=== PATIENT | female | born 1965 | race Caucasian/White ===

== ENCOUNTER 2017-07-24 17:44 | Emergency (ER) | payer MEDICARE ==
[2017-07-24] MEDS ORDERED: KETOROLAC 30 MG/ML 1 ML VIAL IVP STA (18:15)
[2017-07-24] MEDS ORDERED: diphenhydrAMINE 50 MG/ML 1 ML VIAL IVP STA (18:15)
[2017-07-24] MEDS ORDERED: SODIUM CHLORIDE 0.9% 1,000 ML IV STA (18:15)
[2017-07-24] MEDS ORDERED: METOCLOPRAMIDE 5 MG/ML 2 ML VIAL IVP STA (18:15)
--- NOTE | 2017-07-24 18:41 | ED ---
General Adult HPI - General Chief complaint: Headache Stated complaint: Migraine Time Seen by Provider: 07/24/17 18:01 Source: patient, RN notes reviewed Mode of arrival: ambulatory Limitations: no limitations - History of Present Illness Initial comments: 51-year-old female with a past medical history of chronic migraines presents for chronic migraine. She states that she's had this migraine nausea vomiting. She has sensitivity to light and sound. Patient states this happens every once a while of flareup in her at home that was will not take the headache away. Patient denies any fever chills any cough cold runny nose associated with she is not currently having any other symptoms. Patient denies any recent fever, chills, shortness of breath, chest pain, back pain, abdominal pain, nausea vomiting, numbness or tingling, dysuria or hematuria, constipation or diarrhea, visual changes, or any other current symptoms. - Related Data Home Medications Medication Instructions Recorded Confirmed Amitriptyline HCl [Elavil] 50 mg PO HS 10/30/14 06/16/16 Hydrocodone/Acetaminophen [[place] 1 tab PO TID PRN 12/09/15 06/16/16 10-325] Gabapentin [Neurontin] 100 mg PO TID 03/22/16 06/16/16 DULoxetine HCL [Cymbalta] 60 mg PO QAM 04/18/16 06/16/16 LORazepam [Ativan] 1 mg PO DAILY PRN 05/14/16 06/16/16 Previous Rx's Medication Instructions Recorded Pramipexole [Mirapex] 1 mg PO HS #30 tab 04/03/16 QUEtiapine [SEROquel] 200 mg PO HS #30 tab 04/03/16 Allergies Allergy/AdvReac Type Severity Reaction Status Date / Time iodine Allergy Rash/Hives Verified 07/24/17 17:56 shellfish derived [Shellfish] Allergy Rash/Hives Verified 07/24/17 17:56 Review of Systems ROS Statement: Those systems with pertinent positive or pertinent negative responses have been documented in the HPI. ROS Other: All systems not noted in ROS Statement are negative. Past Medical History Past Medical History: Cancer, Fibromyalgia, Rheumatoid Arthritis (RA), Sleep Apnea/CPAP/BIPAP Additional Past Medical History / Comment(s): Lupus, migraine, sleep walking, and RLS.,skin CA removed from rt arm History of Any Multi-Drug Resistant Organisms: None Reported Past Surgical History: Section Additional Past Surgical History / Comment(s): migraines, restless leg, lupus Past Anesthesia/Blood Transfusion Reactions: No Reported Reaction Past Psychological History: Anxiety, Depression Smoking Status: Current every day smoker Past Alcohol Use History: None Reported Past Drug Use History: Marijuana - Past Family History Mother Family Medical History: Cancer, Deep Vein Thrombosis (DVT) Additional Family Medical History / Comment(s): stomach CA Father Family Medical History: Deep Vein Thrombosis (DVT), Pulmonary Embolus General Exam - General Exam Comments Initial Comments: General: The patient is awake and alert, in no distress, and does not appear acutely ill. Eye: Pupils are equal, round and reactive to light, extra-ocular movements are intact; there is normal conjunctiva bilaterally. No signs of icterus. Ears, nose, mouth and throat: There are moist mucous membranes. Neck: The neck is supple, there is no tenderness. Cardiovascular: There is a regular rate and rhythm. No murmur, rub or gallop is appreciated. Respiratory: Lungs are clear to auscultation, respirations are non-labored, breath sounds are equal. No wheezes, stridor, rales, or rhonchi. Back: There is no tenderness to palpation in the midline. There is no obvious deformity. No rashes noted. Musculoskeletal: Normal ROM, no tenderness, There is no pedal edema. There is no calf tenderness or swelling. Sensation intact. Pulses equal bilaterally 2+. Neurological: CN II-XII intact, There are no obvious motor or sensory deficits. Coordination appears grossly intact. Speech is normal. Skin: Skin is warm and dry and no rashes or lesions are noted. Psychiatric: Cooperative, appropriate mood & affect, normal judgment. Limitations: no limitations Course Vital Signs 07/24/17 17:56 Temperature 99.4 F Pulse Rate 98 Respiratory 18 Rate Blood Pressure 140/86 O2 Sat by Pulse 100 Oximetry Medical Decision Making - Medical Decision Making 51-year-old female presents for flareup of chronic migraine headaches. At this time patient's reassessed and she is feeling better. She is requesting discharge home. We discussed all questions. Patient stated that she understood this plan. She'll be discharged. Disposition Clinical Impression: Headache Disposition: HOME SELF-CARE Condition: Stable Instructions: Acute Headache (ED) Additional Instructions: Please use medication as discussed. Please follow up with family doctor if symptoms have not improved over the next two days. Please return to the emergency room if your symptoms increase or worsen or for any other concerns. Referrals: Ahmet Ken DO [Primary Care Provider] - 1-2 days Time of Disposition: 19:03
[2017-07-24 19:10] VITALS: BP 124/86; PULSE 90; RESP 20; TEMP 98.5
== END 2017-07-24 19:11 | disposition home or self-care (01) ==
LOC: EC 17:44
DX: R51 Headache (principal); F32.9 Major depressive disorder, single episode, unspecified; F41.9 Anxiety disorder, unspecified; M79.7 Fibromyalgia; G47.30 Sleep apnea, unspecified; F17.200 Nicotine dependence, unspecified, uncomplicated; Z85.828 Personal history of other malignant neoplasm of skin; Z86.69 Personal history of other diseases of the nervous system and sense organs; Z91.048 Other nonmedicinal substance allergy status; Z99.89 Dependence on other enabling machines and devices; Z91.013 Allergy to seafood; Z79.899 Other long term (current) drug therapy
CPT/HCPCS: 99283; 96374; 96375 ×2; 96361; J1200; J2765; J1885

== ENCOUNTER 2017-09-16 00:09 | Inpatient (IN) | payer MEDICARE ==
--- NOTE | 2017-09-16 00:51 | ED ---
Psych HPI - General Chief Complaint: Psychiatric Symptoms Stated Complaint: mental health Time Seen by Provider: 09/16/17 00:32 Source: patient, family Mode of arrival: ambulatory - History of Present Illness Initial Comments: 51-year-old female patient presents to the emergency department today for complaints of depression and suicidal ideation. Patient states that she has been feeling like this for the last few months. States she was admitted here but feels she was discharged to soon. She states that she has been sleeping all the time and has no will to live. States that she doesn't want to be "severe" anymore. Patient states that she previously attempted to take pills in attempt to kill herself. She denies any attempt today. Denies any alcohol or drug use. States that she has been having nightmares. States she is eating and drinking. Denies any current physical symptoms. Patient denies any recent rash, fever, chills, shortness breath, chest pain, abdominal pain, nausea, vomiting, diarrhea, constipation, back pain, numbness, tingling, dizziness, weakness, hematuria, dysuria, urinary urgency, urinary frequency, headache, visual changes, or any other complaints. - Related Data Home Medications Medication Instructions Recorded Confirmed Amitriptyline HCl [Elavil] 150 mg PO HS 08/04/17 09/16/17 Simvastatin [Zocor] 20 mg PO HS 08/04/17 09/16/17 ALPRAZolam [Xanax] 1 mg PO BID 09/16/17 09/16/17 Cetirizine HCl 10 mg PO DAILY 09/16/17 09/16/17 Hydrocodone/Acetaminophen 1 each PO Q8HR 09/16/17 09/16/17 [Hydrocodon-Acetaminophn 10-325] OLANZapine [ZyPREXA] 5 mg PO DAILY 09/16/17 09/16/17 Propranolol HCl [Propranolol HCl 60 mg PO DAILY 09/16/17 09/16/17 ER] Sodium Chloride [Saline Nasal 1 spray EA NOSTRIL 09/16/17 [place]] Previous Rx's Medication Instructions Recorded Pramipexole [Mirapex] 1 mg PO HS #30 tab 04/03/16 Allergies Allergy/AdvReac Type Severity Reaction Status Date / Time iodine Allergy Rash/Hives Verified 09/16/17 00:20 shellfish derived [Shellfish] Allergy Rash/Hives Verified 09/16/17 00:20 Review of Systems ROS Statement: Those systems with pertinent positive or pertinent negative responses have been documented in the HPI. ROS Other: All systems not noted in ROS Statement are negative. Past Medical History Past Medical History: Cancer, Fibromyalgia, Rheumatoid Arthritis (RA), Sleep Apnea/CPAP/BIPAP Additional Past Medical History / Comment(s): Lupus, migraine, sleep walking, and RLS.,skin CA removed from rt arm, History of Any Multi-Drug Resistant Organisms: None Reported Past Surgical History: Section Additional Past Surgical History / Comment(s): migraines, restless leg, lupus Past Anesthesia/Blood Transfusion Reactions: No Reported Reaction Past Psychological History: Anxiety, Depression Smoking Status: Current every day smoker Past Alcohol Use History: None Reported Past Drug Use History: Marijuana - Past Family History Mother Family Medical History: Cancer, Deep Vein Thrombosis (DVT) Additional Family Medical History / Comment(s): stomach CA Father Family Medical History: Deep Vein Thrombosis (DVT), Pulmonary Embolus General Exam Limitations: no limitations General appearance: alert, in no apparent distress, other (This is a well- developed, thin appearing adult female patient in no acute distress. Vital signs upon presentation are temperature 97.5F, pulse 70, respiration 16, blood pressure 138/80, pulse ox 99% on room air.) Eye exam: Present: normal appearance, PERRL, EOMI. Absent: scleral icterus, conjunctival injection, periorbital swelling ENT exam: Present: normal exam, normal oropharynx, mucous membranes moist Respiratory exam: Present: normal lung sounds bilaterally. Absent: respiratory distress, wheezes, rales, rhonchi, stridor Cardiovascular Exam: Present: regular rate, normal rhythm, normal heart sounds. Absent: systolic murmur, diastolic murmur, rubs, gallop, clicks GI/Abdominal exam: Present: soft, normal bowel sounds. Absent: distended, tenderness, guarding, rebound, rigid Neurological exam: Present: alert, oriented X3, CN II-XII intact Psychiatric exam: Present: normal affect, normal mood Skin exam: Present: warm, dry, intact, normal color. Absent: rash Course Vital Signs 09/16/17 00:14 Temperature 97.5 F L Pulse Rate 70 Respiratory 16 Rate Blood Pressure 138/80 O2 Sat by Pulse 99 Oximetry Medical Decision Making - Medical Decision Making Physical examination was unremarkable. Patient was evaluated by emergency psych services, assaults time she would benefit from inpatient admission. She' ll be admitted to the mental health unit. Disposition Clinical Impression: Suicidal ideation, Depression Disposition: TRANSFER TO PSYCH HOSP/UNIT Condition: Serious Referrals: Ahmet Ken DO [Primary Care Provider] - 1-2 days - Out of Hospital Transfer - Req. Specs Out of Hospital Transfer - Requested Specifics: Psychiatric Non-ICU ([facility])
[2017-09-16 02:43] LABS: Amphetamine Screen,Urine Not Detected (NotDetected); Barbiturate Screen,Urine Not Detected (NotDetected); Benzodiazepines Screen,Urine Detected (NotDetected); Cocaine Screen,Urine Not Detected (NotDetected); Methadone Screen, Urine Not Detected (NotDetected); Opiate Screen,Urine Detected (NotDetected); Oxycodone Screen, Urine Not Detected (NotDetected); Phencyclidine Screen,Urine Not Detected (NotDetected); Tricyclic Antidepressant,Urine Detected (NotDetected); Urn Cannabinoid Scrn Not Detected (NotDetected)
[2017-09-16] MEDS ORDERED: MAG HYDROX/AL HYDROX/SIMETH 30 ML CUP PO PRN (05:16)
[2017-09-16] MEDS ORDERED: ACETAMINOPHEN TAB 325 MG TAB PO PRN (05:16)
[2017-09-16] MEDS ORDERED: LORazepam 1 MG TAB PO PRN (05:16)
[2017-09-16] MEDS ORDERED: MAGNESIUM HYDROXIDE 2,400 MG/10 ML CUP PO PRN (05:16)
--- NOTE | 2017-09-16 06:13 | P.MDCNMH ---
History of Present Illness H&P Date: 09/16/17 Chief Complaint: Depression with suicidal ideations 51 year old female with history of depression, presented to the emergency department because of worsening depression/anxiety symptoms as well as suicidal ideation. Patient does have a suicide attempt 2 months ago with an intentional ingestion (overdose) on her medications (30 pill of ativan). Currently patient is not having plans in mind to take her life. She feels that she was discharged early when she was here last time before she could get better enough. She has multiple chronic medical conditions and chronic back pain and she is upset that she cannot take medical marijuana because she is on probation. She otherwise, denies any chest pain, trouble breathing, headache, dizziness, nausea or vomiting, changes in urination or bowel habits, denies any focal neurologic deficits. Review of Systems 12 point review of system was performed, negative except for HPI Past Medical History Past Medical History: Cancer, Fibromyalgia, Rheumatoid Arthritis (RA), Sleep Apnea/CPAP/BIPAP Additional Past Medical History / Comment(s): Lupus, migraine, sleep walking, and RLS.,skin CA removed from rt arm, History of Any Multi-Drug Resistant Organisms: None Reported Past Surgical History: Section Additional Past Surgical History / Comment(s): migraines, restless leg, lupus Past Anesthesia/Blood Transfusion Reactions: No Reported Reaction Past Psychological History: Anxiety, Depression Smoking Status: Current every day smoker Past Alcohol Use History: None Reported Past Drug Use History: Marijuana - Past Family History Mother Family Medical History: Cancer, Deep Vein Thrombosis (DVT) Additional Family Medical History / Comment(s): stomach CA Father Family Medical History: Deep Vein Thrombosis (DVT), Pulmonary Embolus Medications and Allergies Home Medications Medication Instructions Recorded Confirmed Type Pramipexole [Mirapex] 1 mg PO HS #30 tab 04/03/16 09/16/17 Rx Amitriptyline HCl [Elavil] 150 mg PO HS 08/04/17 09/16/17 History Simvastatin [Zocor] 20 mg PO HS 08/04/17 09/16/17 History ALPRAZolam [Xanax] 1 mg PO BID 09/16/17 09/16/17 History Cetirizine HCl 10 mg PO DAILY 09/16/17 09/16/17 History Hydrocodone/Acetaminophen 1 each PO Q8HR 09/16/17 09/16/17 History [Hydrocodon-Acetaminophn 10-325] OLANZapine [ZyPREXA] 5 mg PO DAILY 09/16/17 09/16/17 History Propranolol HCl [Propranolol HCl 60 mg PO DAILY 09/16/17 09/16/17 History ER] Sodium Chloride [Saline Nasal 1 spray EA NOSTRIL 09/16/17 History [place]] Allergies Allergy/AdvReac Type Severity Reaction Status Date / Time iodine Allergy Rash/Hives Verified 09/16/17 00:20 shellfish derived [Shellfish] Allergy Rash/Hives Verified 09/16/17 00:20 Physical Exam Vitals: Vital Signs Temp Pulse Pulse Resp BP BP Pulse Ox 09/16/17 06:01 97.1 F L 59 L 16 123/76 99 09/16/17 00:14 97.5 F L 70 16 138/80 99 Intake and Output 09/15/17 09/15/17 09/16/17 14:59 22:59 06:59 Other: Weight 55 kg Patient Weight 09/16/17 06:59 Weight 55 kg Constitutional: No acute distress, conversant, pleasant Eyes:Anicteric sclerae, moist conjunctiva, no lid-lag, PERRLA, ENMT: Oropharynx clear, no erythema, exudates Neck: Supple, FROM, no masses, or JVD, No carotid bruits, No thyromegaly Lungs: Clear to auscultation, Clear to percussion, Normal respiratory effort, no accessory muscle use Cardiovascular: Heart regular in rate and rhythm, No murmurs, gallops, or rubs, No peripheral edema Abdominal: Soft, Nontender, no guarding, rebound or rigidity, Normoactive bowel sounds, No hepatomegaly, No splenomegaly, No palpable mass Skin: Normal temperature, tone, texture, turgor, no induration, No subcutaneous nodules, No rash, lesions, No ulcers Extremities: No digital cyanosis, No clubbing, Pedal pulses intact and symmetrical, Radial pulses intact and symmetrical, No calf tenderness Psychiatric: Alert and oriented to person, place and time Neuro: Muscles Strength 5/5 in all 4 extremities, Sensation to light touch grossly present throughout, Cranial nerves II-XII grossly intact, no focal sensory deficits Cranial Nerve Examination - Cranial Nerves Cranial Nerve II- Optic: Intact Cranial Nerve III- Oculomotor: Intact Cranial Nerve IV- Trochlear: Intact Cranial Nerve V- Trigeminal: Intact Cranial Nerve - Abducens: Intact Cranial Nerve VII- Facial: Intact Cranial Nerve VIII- Auditory: Intact Cranial Nerve IX- Glossopharyngeal: Intact Cranial Nerve X- Vagus: Intact Cranial Nerve XI- Accessory: Intact Cranial Nerve XII- Hypoglossal: Intact Results Labs: Abnormal Lab Results - Last 24 Hours (Table) 09/16/17 Range/Units 02:10 Urine Opiates Screen Detected H (NotDetected) U Tricyclic Antidepress Detected H (NotDetected) U Benzodiazepines Scrn Detected H (NotDetected) Assessment and Plan Plan: #1 Suicidal ideation/anxiety and depression: Management per psychiatry Suicide precautions #2 Fibromyalgia, Rheumatoid Arthritis (RA), Lupus, migraine, sleep walking, and RLS: Check CBC, BMP, TSH Resume home medications #3 Smoking: Advised to quit, she would like to try nicotine patches
[2017-09-16] MEDS: HYDROcodone/APAP 10-325MG 1 EACH TAB PO SCH ×3 (08:20→23:11)
[2017-09-16] MEDS: PROPRANOLOL LA 60 MG CAP.SA.24H PO SCH (08:20)
[2017-09-16] MEDS: LORATADINE 10 MG TAB PO SCH (08:20)
[2017-09-16] MEDS: NICOTINE 21MG/24HR PATCH TRANSDERM SCH (08:20)
[2017-09-16] MEDS ORDERED: OLANZapine 5 MG TAB PO SCH (09:00)
[2017-09-16 09:55] LABS: Basophils # (A) 0.1 k/uL (0-0.2); Basophils % (A) 1 %; Eosinophils # (A) 0.5 k/uL (0-0.7); Eosinophils % (A) 6 %; HCT 40.9 % (34.0-46.0); HGB 13.1 gm/dL (11.4-16.0); Hypochromasia Slight; Lymphocytes # (A) 3.1 k/uL (1.0-4.8); Lymphocytes % (A) 37 %; MCH 30.7 pg (25.0-35.0); MCHC 31.9 g/dL (31.0-37.0); MCV 96.3 fL (80.0-100.0); Mean Platelet Volume 7.8; Monocytes # (A) 0.6 k/uL (0-1.0); Monocytes % (A) 7 %; Neutrophils % (A) 48 %; Platelet Count 322 k/uL (150-450); RBC 4.25 m/uL (3.80-5.40); WBC 8.4 k/uL (3.8-10.6)
[2017-09-16 10:05] LABS: Albumin 4.1 g/dL (3.5-5.0); Calcium 9.4 mg/dL (8.4-10.2); Potassium 4.3 mmol/L (3.5-5.1); Total Bilirubin 0.3 mg/dL (0.2-1.3); Total Protein 7.2 g/dL (6.3-8.2)
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
[2017-09-16 20:16] LABS: Hemoglobin A1C 5.7 % (4.0-6.0)
[2017-09-16] MEDS ORDERED: AMITRIPTYLINE HCL 50 MG TAB PO SCH (21:00)
[2017-09-16] MEDS: PRAMIPEXOLE 1 MG TAB PO SCH (21:17)
[2017-09-16] MEDS: ATORVASTATIN 10 MG TAB PO SCH (21:18)
[2017-09-16] MEDS: AMITRIPTYLINE HCL 25 MG TAB PO SCH (21:18)
[2017-09-17] MEDS: NICOTINE 21MG/24HR PATCH TRANSDERM SCH (07:43)
[2017-09-17] MEDS: LORATADINE 10 MG TAB PO SCH (07:44)
[2017-09-17] MEDS: PROPRANOLOL LA 60 MG CAP.SA.24H PO SCH (07:44)
[2017-09-17] MEDS: VENLAFAXINE HCL ER 37.5 MG CAP PO SCH (07:44)
[2017-09-17] MEDS: HYDROcodone/APAP 10-325MG 1 EACH TAB PO SCH ×2 (07:44→15:39)
--- NOTE | 2017-09-17 13:37 | P.PN ---
Progress Note - Text Progress Note Date: 09/17/17 Interval History: Patient is a 51-year-old female who was seen today and reports that she is doing fairly well. She reports that she slept fairly well but was up several times during the night. Patient continued to express her concern about her multiple medical problems, her migraine headaches and back pain and states that if she was still a medical marijuana she would not require all of the medication she is currently taking. Patient states she is not having any suicidal thoughts but remains depressed and anxious. Patient states that she had an episode of anxiety and requested Ativan. Mental Status: Appearance/Attitude: Patient is appropriately dressed, makes good eye contact and is cooperative. Behavior: Patient does not exhibit any psychomotor agitation or retardation. Speech/Language: Speech is spontaneous of normal volume and rhythm and she is coherent. Thought Process: Patient is goal-directed there is no evidence of loose association or flight of ideas. Thought Content: Patient denies any auditory or visual hallucinations and no delusions or paranoid ideation were elicited. Patient remained somatically preoccupied with her migraine headaches, back pain and concerns that his medications are adjusted these will increase. Patient states that her sleep was somewhat disrupted last night but her appetite remains good. Patient states that she had an episode of anxiety yesterday afternoon. Suicidal/Homicidal Ideation: Patient denies any current suicidal or homicidal ideation. Sensorium/Cognition: Patient is alert and oriented to person, place, and time and her recent and remote memory are grossly intact. Mood/Affect: Patient's mood is slightly depressed and her affect is slightly blunted. Insight/Judgment: Patient's insight and judgment are fair Assessment: Patient reports that she had interrupted sleep last night and had an episode of anxiety and is concerned that with changing her medication her migraine headaches will increase as well as her pain. Patient continues to state that if she was using medical marijuana she would not require all these medications. Patient is not reporting any suicidal ideation and states that she has been attending groups. Patient reports no side effects from beginning the Effexor. Plan: Patient will continue on Elavil 75 mg at bedtime and will continue to decrease and eventually discontinue. Patient continue on Effexor 37-1/2 mg extended release in the morning to target her depression. At this time Zyprexa was moved to bedtime at 5 mg and will continue to assess the need for this medication due to the patient's continued complaints of back pain I suggested since it is a neuropathic pain to consider and try Neurontin 100 mg 3 times a day patient was agreeable to this and I stated that it may also assist with her anxiety. I encouraged the patient to give the Neurontin a chance and not use the [place]. Patient continues to require hospitalization to further stabilize her mood.
[2017-09-17] MEDS: GABAPENTIN 100 MG CAP PO SCH ×2 (15:40→22:06)
[2017-09-17] MEDS: AMITRIPTYLINE HCL 25 MG TAB PO SCH (22:05)
[2017-09-17] MEDS: PRAMIPEXOLE 1 MG TAB PO SCH (22:06)
[2017-09-17] MEDS: OLANZapine 5 MG TAB PO SCH (22:06)
[2017-09-17] MEDS: ATORVASTATIN 10 MG TAB PO SCH (22:06)
[2017-09-18] MEDS: HYDROcodone/APAP 10-325MG 1 EACH TAB PO SCH ×4 (00:40→23:46)
[2017-09-18] MEDS: NICOTINE 21MG/24HR PATCH TRANSDERM SCH (08:45)
[2017-09-18] MEDS: GABAPENTIN 100 MG CAP PO SCH ×3 (08:45→21:27)
[2017-09-18] MEDS: PROPRANOLOL LA 60 MG CAP.SA.24H PO SCH (08:45)
[2017-09-18] MEDS: LORATADINE 10 MG TAB PO SCH (08:45)
[2017-09-18] MEDS: VENLAFAXINE HCL ER 37.5 MG CAP PO SCH (08:45)
[2017-09-18] MEDS ORDERED: LORazepam 0.5 MG TAB PO PRN (12:04)
--- NOTE | 2017-09-18 12:11 | P.PN ---
Progress Note - Text Progress Note Date: 09/18/17 Interval History: Patient is a 51-year-old female who was seen today who reports that she woke up several times last evening but was able to sleep for greater than 8 hours. Patient states that her pain is slightly less today, she is concerned that her headaches we'll restart as we have decreased the Elavil. Patient states she still depressed because she "has been for a long time". Patient stated that she is slightly anxious because her daughter is to visit [facility] and she has been trying to not use the Ativan. Patient reported no side effects from medications. Mental Status: Appearance/Attitude: Patient is appropriately dressed, makes good eye contact and is cooperative. Behavior: Patient does not exhibit any psychomotor agitation or retardation. Speech/Language: Patient's speech is spontaneous and of normal volume and rhythm and she is coherent. Thought Process: Patient is goal-directed, no evidence of loose association or flight of ideas. Thought Content: Patient denies any auditory or visual hallucinations, no delusions or paranoid ideation were elicited. Patient continues to be somatically preoccupied concerned about her back pain, leg pain as well as a return of her migraine headaches. Patient does state that her pain is slightly less today. Patient reports that she still feels depressed because she has been depressed for a long time. Patient reports no migraine headaches and she did sleep for greater than 8 hours last night. Patient is eating well. Patient reports no side effects from her medications. Suicidal/Homicidal Ideation: Patient denies any current suicidal or homicidal ideation. Sensorium/Cognition: Patient is alert and oriented to person, place, and time and her recent and remote memory are grossly intact. Mood/Affect: Patient's mood remains slightly depressed and her affect is slightly blunted Insight/Judgment: Patient's insight and judgment are fair Assessment: Patient reports that she slept fairly well last evening, that her pain is slightly less intense but she remains focused on her somatic problems concerned about whether the migraine headaches will return and it for back pain will increase. Patient reported that she is also anxious about her daughter visiting her [facility]. Patient reports that she still feels depressed. Patient reported no side effects from her medications. Patient is attending groups and activities. Plan: Patient will continue on Effexor 37.5 mg extended release in the morning, Zyprexa 5 mg at bedtime and will discontinue her Elavil. Patient continues on Neurontin 100 mg 3 times a day to target both her pain and anxiety and will consider an increase as needed. Patient will also have her Ativan decreased to 0.5 mg 3 times a day as needed. Patient continues to require hospitalization to further stabilize her mood.
[2017-09-18] MEDS: PRAMIPEXOLE 1 MG TAB PO SCH (21:24)
[2017-09-18] MEDS: ATORVASTATIN 10 MG TAB PO SCH (21:24)
[2017-09-18] MEDS: OLANZapine 5 MG TAB PO SCH (21:24)
[2017-09-19] MEDS: NICOTINE 21MG/24HR PATCH TRANSDERM SCH (08:42)
[2017-09-19] MEDS: PROPRANOLOL LA 60 MG CAP.SA.24H PO SCH (08:42)
[2017-09-19] MEDS: GABAPENTIN 100 MG CAP PO SCH ×3 (08:42→21:01)
[2017-09-19] MEDS: VENLAFAXINE HCL ER 37.5 MG CAP PO SCH (08:42)
[2017-09-19] MEDS: LORATADINE 10 MG TAB PO SCH (08:42)
[2017-09-19] MEDS: HYDROcodone/APAP 10-325MG 1 EACH TAB PO SCH ×3 (09:27→23:11)
--- NOTE | 2017-09-19 11:55 | P.PN ---
Progress Note - Text Progress Note Date: 09/19/17 Interval History: Patient is a 51-year-old female who was seen today. Patient was complaining of rib pain and her stomach muscles hurting but was unable to explain why she felt this way this morning. She states it was relieved when she took her [place] this morning. Patient states that she was up several times last evening. Patient states she is no longer having any sciatic pain. She reports that she is not having any suicidal ideation and after a good visit with her and daughter was feeling more positive about the future. Patient states that she is been going to groups and activities. Patient continued to be concerned that she will have a migraine headache because I have discontinued her Elavil. Mental Status: Appearance/Attitude: Patient is appropriately dressed, makes good eye contact and is cooperative. Behavior: Patient does not display any psychomotor agitation or retardation. Speech/Language: Patient's speech is spontaneous and normal volume and rhythm and she is coherent. Thought Process: Patient is goal-directed no evidence of circumstantial or tangential thought and no loose association or flight of ideas Thought Content: Patient denies any auditory or visual hallucinations, no delusions or paranoid ideation were elicited. Patient remains somatically preoccupied, complaining of rib pain and sore stomach muscles as well as concerns about whether she will have a migraine headache due to her Elavil being discontinued. Patient states that she woke up several times last evening but cannot tell me why. Patient states that she is feeling more positive about the future as a visit with her daughter and went well. She reports that her anxiety is less as well and has not been requesting any Ativan when necessary. Patient reported a decrease in her sciatic pain. Suicidal/Homicidal Ideation: Patient denied any current suicidal or homicidal ideation. Sensorium/Cognition: Patient is alert and oriented to person, place, and time and her recent and remote memory are grossly intact Mood/Affect: Patient's mood is less depressed and her affect is appropriate Insight/Judgment: Patient's insight and judgment are fair. Assessment: Patient reports that she is not as anxious, is not having any sciatic pain and no further suicidal ideation. She states that her outlook is more positive and she is feeling much less depressed. Patient however remains somatically preoccupied concerned about the discontinuation of her Elavil and her having a migraine headache, patient is on propranolol for migraine headache prophylaxis and has not had a migraine headaches and she is been in the hospital. Patient was also complaining that her ribs and stomach muscles were hurting this morning but could not tell me why and they were relieved when she took her [place]. Patient has not requested any Ativan when necessary. Patient reports that she is less anxious with the beginning of the Neurontin and does think that it has helped her sciatic pain. Patient has been attending groups. Plan: Patient will continue on Effexor 37.5 mg extended release in the morning, Zyprexa 5 mg at bedtime and no increase in Neurontin at this time. Patient and I discussed discharge, her concern was regarding her migraine headaches. Patient and I discussed possible discharge tomorrow and she was somewhat hesitant about this. Plan for patient after discharge is to see a psychiatric provider for her psychotropic medication versus her primary care physician.
[2017-09-19 15:03] VITALS: BMI 19.0
[2017-09-19] MEDS: OLANZapine 5 MG TAB PO SCH (21:01)
[2017-09-19] MEDS: ATORVASTATIN 10 MG TAB PO SCH (21:01)
[2017-09-19] MEDS: PRAMIPEXOLE 1 MG TAB PO SCH (21:01)
[2017-09-20 05:47] VITALS: BP 118/70; PULSE 64; RESP 12; TEMP 97.7
[2017-09-20] MEDS: NICOTINE 21MG/24HR PATCH TRANSDERM SCH (08:49)
[2017-09-20] MEDS: GABAPENTIN 100 MG CAP PO SCH ×2 (08:50→16:38)
[2017-09-20] MEDS: VENLAFAXINE HCL ER 37.5 MG CAP PO SCH (08:50)
[2017-09-20] MEDS: HYDROcodone/APAP 10-325MG 1 EACH TAB PO SCH ×2 (08:50→16:38)
[2017-09-20] MEDS: LORATADINE 10 MG TAB PO SCH (08:50)
[2017-09-20] MEDS: PROPRANOLOL LA 60 MG CAP.SA.24H PO SCH (08:50)
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
== END 2017-09-20 17:54 | disposition home or self-care (01) | DRG 881 ==
LOC: EC 00:09 → 3MHU 05:04
PROVIDERS: ADMIT Psychiatry & Neurology Psychiatry; ATTEND Psychiatry & Neurology Psychiatry
DX: F32.9 Major depressive disorder, single episode, unspecified (principal); R45.851 Suicidal ideations; F17.200 Nicotine dependence, unspecified, uncomplicated; F41.9 Anxiety disorder, unspecified; G25.81 Restless legs syndrome; G43.909 Migraine, unspecified, not intractable, without status migrainosus; G47.30 Sleep apnea, unspecified; M06.9 Rheumatoid arthritis, unspecified; M54.30 Sciatica, unspecified side; M79.7 Fibromyalgia; Z72.6 Gambling and betting; Z79.899 Other long term (current) drug therapy; Z80.0 Family history of malignant neoplasm of digestive organs; Z85.828 Personal history of other malignant neoplasm of skin; Z91.5 Personal history of self-harm; Z88.3 Allergy status to other anti-infective agents; Z91.013 Allergy to seafood
CPT/HCPCS: 80053; 80061; 80306; 82075; 83036; 84443; 85025; 99285

== ENCOUNTER 2017-12-24 10:47 | Emergency (ER) | payer MEDICARE ==
[2017-12-24 10:53] VITALS: PULSE 63; RESP 18
[2017-12-24] MEDS ORDERED: SODIUM CHLORIDE 0.9% 2,000 ML IV ONE (11:14)
[2017-12-24] MEDS ORDERED: diphenhydrAMINE 50 MG/ML 1 ML VIAL IVP STA (11:14)
[2017-12-24] MEDS ORDERED: DEXAMETHASONE SOD PHOSPHATE 10 MG/ML 1 ML VIAL IV STA (11:14)
[2017-12-24] MEDS ORDERED: KETOROLAC 30 MG/ML 1 ML VIAL IVP STA (11:14)
[2017-12-24] MEDS ORDERED: METOCLOPRAMIDE 5 MG/ML 2 ML VIAL IVP STA (11:14)
--- NOTE | 2017-12-24 11:17 | ED ---
General Adult HPI - General Chief complaint: Headache Stated complaint: Migraine Time Seen by Provider: 12/24/17 10:56 Source: patient Mode of arrival: wheelchair Limitations: no limitations - History of Present Illness Initial comments: The patient is a 52-year-old female presents with a chief complaint of a frontal headache consistent with migraine headaches. Patient states that she's had migraine headaches for 30 years. She states that this is the typical pattern for her. She states that she felt the aura when it started, she is sensitive to light and sound. Patient states that she has been trying to take her medications at home without relief. This headache has been going on for 2 days. She denied any findings that incident, there are no aggravating or alleviating factors. Patient otherwise has no complaints. - Related Data Home Medications Medication Instructions Recorded Confirmed Simvastatin [Zocor] 20 mg PO HS 08/04/17 12/24/17 Hydrocodone/Acetaminophen 1 tab PO Q8H PRN 09/16/17 12/24/17 [Hydrocodon-Acetaminophn 10-325] ALPRAZolam [Xanax] 1 mg PO BID PRN 12/24/17 12/24/17 Cholecalciferol [Vitamin D3] 1,000 unit PO DAILY 12/24/17 12/24/17 Meloxicam [Mobic] 15 mg PO DAILY 12/24/17 12/24/17 Propranolol HCl [Propranolol HCl 120 mg PO HS 12/24/17 12/24/17 ER] Venlafaxine HCl ER [Effexor XR] 37.5 mg PO DAILY 12/24/17 12/24/17 Venlafaxine HCl [Effexor] 100 mg PO DAILY 12/24/17 12/24/17 Previous Rx's Medication Instructions Recorded Pramipexole [Mirapex] 1 mg PO HS #30 tab 04/03/16 OLANZapine [ZyPREXA] 5 mg PO HS #14 tab 09/20/17 Allergies Allergy/AdvReac Type Severity Reaction Status Date / Time Iodinated Contrast- Oral and Allergy Anaphylaxis Verified 12/24/17 11:01 IV Dye iodine Allergy Anaphylaxis Verified 12/24/17 11:01 shellfish derived [Shellfish] Allergy Anaphylaxis Verified 12/24/17 11:01 Review of Systems ROS Statement: Those systems with pertinent positive or pertinent negative responses have been documented in the HPI. ROS Other: All systems not noted in ROS Statement are negative. Neurological: Reports: headache Past Medical History Past Medical History: Cancer, Fibromyalgia, Rheumatoid Arthritis (RA), Sleep Apnea/CPAP/BIPAP Additional Past Medical History / Comment(s): Lupus, migraine, sleep walking, and RLS.,skin CA removed from rt arm, History of Any Multi-Drug Resistant Organisms: None Reported Past Surgical History: Section Additional Past Surgical History / Comment(s): migraines, restless leg, lupus Past Anesthesia/Blood Transfusion Reactions: No Reported Reaction Past Psychological History: Anxiety, Bipolar, Depression Smoking Status: Current every day smoker Past Alcohol Use History: None Reported Past Drug Use History: Marijuana - Past Family History Mother Family Medical History: Cancer, Deep Vein Thrombosis (DVT) Additional Family Medical History / Comment(s): stomach CA Father Family Medical History: Deep Vein Thrombosis (DVT), Pulmonary Embolus General Exam Limitations: no limitations General appearance: alert, in no apparent distress Head exam: Present: atraumatic, normocephalic Eye exam: Present: normal appearance, PERRL, EOMI Pupils: Present: normal accommodation ENT exam: Present: normal exam, mucous membranes moist Neck exam: Present: normal inspection Respiratory exam: Present: normal lung sounds bilaterally. Absent: respiratory distress, wheezes Cardiovascular Exam: Present: regular rate, normal rhythm GI/Abdominal exam: Present: soft. Absent: distended, tenderness Rectal exam: Present: deferred Extremities exam: Present: normal inspection Back exam: Present: normal inspection Neurological exam: Present: alert, oriented X3, CN II-XII intact. Absent: motor sensory deficit Psychiatric exam: Present: normal affect, normal mood Skin exam: Present: warm, dry, intact Course Vital Signs 12/24/17 10:51 Temperature 98.4 F Pulse Rate 63 Respiratory 18 Rate Blood Pressure 176/105 O2 Sat by Pulse 100 Oximetry Medical Decision Making - Medical Decision Making Patient presents with a chief complaint of a migraine headache. On initial evaluation, patient is hypertensive but otherwise vital signs are stable. Patient says that she did not take her antihypertensive today. Patient was given a headache cocktail and 2 L of fluid. 12:56 PM On reevaluation, the patient says she feels better. At this time she is stable for discharge. Patient's neurologic exam is unchanged. Patient was instructed to follow-up with primary care in 1-2 days, return to the emergency department if symptoms worsen or change. Disposition Clinical Impression: Migraine, Headache Disposition: HOME SELF-CARE Condition: Good Instructions: Acute Headache (ED) Is patient prescribed a controlled substance at d/c from ED?: No Referrals: Ahmet Ken DO [Primary Care Provider] - 1-2 days
[2017-12-24 13:14] VITALS: BP 132/69; TEMP 97.2
== END 2017-12-24 13:14 | disposition home or self-care (01) ==
LOC: EC 10:47
DX: G43.909 Migraine, unspecified, not intractable, without status migrainosus (principal); M79.7 Fibromyalgia; M06.9 Rheumatoid arthritis, unspecified; G47.30 Sleep apnea, unspecified; F41.9 Anxiety disorder, unspecified; F31.9 Bipolar disorder, unspecified; F17.200 Nicotine dependence, unspecified, uncomplicated; R03.0 Elevated blood-pressure reading, without diagnosis of hypertension; Z85.828 Personal history of other malignant neoplasm of skin; Z99.89 Dependence on other enabling machines and devices; Z79.1 Long term (current) use of non-steroidal anti-inflammatories (NSAID); Z79.899 Other long term (current) drug therapy; Z91.013 Allergy to seafood; Z91.041 Radiographic dye allergy status
CPT/HCPCS: 99283; 96374; 96375 ×3; 96361 ×2; J1200; J1100; J2765; J1885

== ENCOUNTER 2018-11-11 19:41 | Emergency (ER) | payer MEDICARE ==
[2018-11-11] MEDS ORDERED: SODIUM CHLORIDE 0.9% 1,000 ML IV STA (20:32)
[2018-11-11] MEDS ORDERED: KETOROLAC 30 MG/ML 1 ML VIAL IVP STA (20:32)
[2018-11-11] MEDS ORDERED: METOCLOPRAMIDE 5 MG/ML 2 ML VIAL IVP STA (20:32)
[2018-11-11] MEDS ORDERED: diphenhydrAMINE 50 MG/ML 1 ML VIAL IVP STA (20:32)
[2018-11-11 21:49] VITALS: BP 155/96; PULSE 67; RESP 17; TEMP 97.5
--- NOTE | 2018-11-11 21:49 | ED ---
General Adult HPI - General Source: patient, RN notes reviewed Mode of arrival: ambulatory Limitations: no limitations <Bobby Graham P - Last Filed: 11/11/18 21:44> <Bre Yun P - Last Filed: 11/12/18 04:20> - General Chief complaint: Headache Stated complaint: Migraine Time Seen by Provider: 11/11/18 20:23 - History of Present Illness Initial comments: 52-year-old femaleWith a past medical history of migraines, fibromyalgia, rheumatoid arthritis, lupus, skin cancer presents to the emergency department for a chief complaint of migraine x 9 hours. Patient states it is throughout her entire head. States it is a pounding in nature. States that this is exactly consistent with previous migraines. States she took her [place] but it did not help. Patient states that when her migraines feel like this she comes to the emergency department for the "migraine cocktail." Patient denies any differences in this headache than her previous migraines. Patient admits to light and sound sensitivity. States it is making her nauseous and vomit. Patient has no other complaints at this time including shortness of breath, chest pain, abdominal pain, nausea or vomiting, headache, or visual changes. (Bobby Graham) - Related Data Home Medications Medication Instructions Recorded Confirmed Simvastatin [Zocor] 20 mg PO HS 08/04/17 11/11/18 Hydrocodone/Acetaminophen 1 tab PO Q8H PRN 09/16/17 11/11/18 [Hydrocodon-Acetaminophn 10-325] ALPRAZolam [Xanax] 1 mg PO BID PRN 12/24/17 11/11/18 Propranolol HCl [Propranolol HCl 120 mg PO HS 12/24/17 11/11/18 ER] Venlafaxine HCl [Effexor XR] 75 mg PO DAILY 11/11/18 11/11/18 Previous Rx's Medication Instructions Recorded Pramipexole [Mirapex] 1 mg PO HS #30 tab 04/03/16 OLANZapine [ZyPREXA] 5 mg PO HS #14 tab 09/20/17 Allergies Allergy/AdvReac Type Severity Reaction Status Date / Time Iodinated Contrast- Oral and Allergy Anaphylaxis Verified 11/11/18 20:47 IV Dye iodine Allergy Anaphylaxis Verified 11/11/18 20:47 shellfish derived [Shellfish] Allergy Anaphylaxis Verified 11/11/18 20:47 Review of Systems ROS Other: All systems not noted in ROS Statement are negative. <Bobby Graham P - Last Filed: 11/11/18 21:44> ROS Other: All systems not noted in ROS Statement are negative. <Bre Yun P - Last Filed: 11/12/18 04:20> ROS Statement: Those systems with pertinent positive or pertinent negative responses have been documented in the HPI. Past Medical History Past Medical History: Cancer, Fibromyalgia, Rheumatoid Arthritis (RA), Sleep Apnea/CPAP/BIPAP Additional Past Medical History / Comment(s): Lupus, migraine, sleep walking, and RLS.,skin CA removed from rt arm, History of Any Multi-Drug Resistant Organisms: None Reported Past Surgical History: Section Additional Past Surgical History / Comment(s): migraines, restless leg, lupus Past Anesthesia/Blood Transfusion Reactions: No Reported Reaction Past Psychological History: Anxiety, Bipolar, Depression Smoking Status: Current every day smoker Past Alcohol Use History: None Reported Past Drug Use History: Marijuana - Past Family History Mother Family Medical History: Cancer, Deep Vein Thrombosis (DVT) Additional Family Medical History / Comment(s): stomach CA Father Family Medical History: Deep Vein Thrombosis (DVT), Pulmonary Embolus <Bobby Graham P - Last Filed: 11/11/18 21:44> General Exam Limitations: no limitations General appearance: alert, in no apparent distress Head exam: Present: atraumatic, normocephalic, normal inspection Eye exam: Present: normal appearance, PERRL, EOMI. Absent: scleral icterus, conjunctival injection, periorbital swelling ENT exam: Present: normal exam, normal oropharynx, mucous membranes moist, TM's normal bilaterally, normal external ear exam Neck exam: Present: normal inspection, full ROM. Absent: tenderness, meningismus, lymphadenopathy Respiratory exam: Present: normal lung sounds bilaterally. Absent: respiratory distress, wheezes, rales, rhonchi, stridor Cardiovascular Exam: Present: regular rate, normal rhythm, normal heart sounds. Absent: systolic murmur, diastolic murmur, rubs, gallop, clicks Neurological exam: Present: alert, oriented X3, CN II-XII intact, other (GCS 15) Psychiatric exam: Present: normal affect, normal mood <Bobby Graham P - Last Filed: 11/11/18 21:44> Course Vital Signs 11/11/18 11/11/18 20:18 21:44 Temperature 98.2 F 97.5 F L Pulse Rate 68 67 Respiratory 18 17 Rate Blood Pressure 193/101 155/96 O2 Sat by Pulse 97 97 Oximetry Medical Decision Making <Bobby Graham P - Last Filed: 11/11/18 21:44> <Bre Yun P - Last Filed: 11/12/18 04:20> - Medical Decision Making 52-year-old female presents to the emergency department for migraine headache. This occurred approximately 9 hours ago. States she took her normal medications for this but it did not help. States that when he gets like this she comes to the emergency department for the migraine cocktail. States this headache is exactly consistent with previous headaches. On initial evaluation patient is stating her pain is 10 out of 10. No focal neurologic deficits on exam. Patient is initially hypertensive likely due to pain. Patient was given Toradol, Reglan, Benadryl as well as fluids. Patient states she is feeling significantly better. States her pain is now a 4 out of 10. Patient actually requesting discharge. Patient's vitals did improve and blood pressure is within acceptable limits at this time. Patient will be discharged home with precautions to return here to the emergency Department if she has any worsening symptoms. (Bobby Graham) I was available for consultation in the emergency department. The history and physical exam were done by the midlevel provider. I was consulted for this patient's care. I reviewed the case with the midlevel provider and based on their presentation of the patient, I agree with the assessment, medical decision making and plan of care as documented. Chart was dictated using [employer] dictation software. Attempts were made to correct any dictation errors however some typographical errors may persist. (Bre Yun) Disposition Is patient prescribed a controlled substance at d/c from ED?: No Time of Disposition: 21:45 <Bobby Graham P - Last Filed: 11/11/18 21:44> <Bre Yun P - Last Filed: 11/12/18 04:20> Clinical Impression: Headache Disposition: HOME SELF-CARE Condition: Good Instructions (If sedation given, give patient instructions): Migraine Headache (ED), Acute Headache (ED) Additional Instructions: Continue to take home pain medications. Please follow up with primary care in 1-2 days. Return to the emergency department if you have any worsening symptoms. Referrals: Ahmet Ken DO [Primary Care Provider] - 1-2 days
== END 2018-11-11 21:55 | disposition home or self-care (01) ==
LOC: EC 19:41
DX: R51 Headache (principal); R11.2 Nausea with vomiting, unspecified; M06.9 Rheumatoid arthritis, unspecified; G47.30 Sleep apnea, unspecified; Z99.89 Dependence on other enabling machines and devices; F31.9 Bipolar disorder, unspecified; F41.9 Anxiety disorder, unspecified; Z85.828 Personal history of other malignant neoplasm of skin; F17.200 Nicotine dependence, unspecified, uncomplicated; Z79.899 Other long term (current) drug therapy; Z91.013 Allergy to seafood; Z88.8 Allergy status to other drugs, medicaments and biological substances; Z91.041 Radiographic dye allergy status
CPT/HCPCS: 99283; 96374; 96375 ×2; 96361; J1200; J2765; J1885